=== PATIENT | female | born 1970 | race Caucasian/White ===

== ENCOUNTER 2019-04-22 15:45 | Emergency (ER) | payer OTHER ==
[~2019-04-22] VITALS: Ht 170.2 cm; Wt 102.1 kg
[~2019-04-22 15:45] MED LIST: ANTI-DIARRHEA2 MG PO; BIAXIN500 MG PO; CHERATUSSIN DA480 ML; LORTAB 10-3251 EACH; PREDNISONE 20 M20 MG PO; PROPRANOLOL 1010 MG; PROVENTIL IH; PROZAC 20 MG20 M1; PROZAC40 MG; TESSALON PERLE100 MG PO; VENTOLIN HFA 1818 GM INH; ZPAK PO
[2019-04-22] MEDS ORDERED: ALIGN4 MG PO (16:10)
[2019-04-22] MEDS ORDERED: FLEXERIL PO (16:10)
[2019-04-22] MEDS ORDERED: ACETAMINOPHEN-1 EAC1 PO (16:10)
[2019-04-22] MEDS ORDERED: XANAX 0.5 MG0.5 MG PO (16:10)
[2019-04-22 16:24] LABS: URINE BILIRUBIN NEGATIVE (Negative); URINE BLOOD 1+ (Negative); URINE CLARITY CLEAR; URINE COLOR YELLOW; URINE GLUCOSE-RANDOM NEGATIVE (Negative); URINE KETONES NEGATIVE (Negative); URINE LEUKOCYTES-REFLEX NEGATIVE (Negative); URINE NITRITE-REFLEX NEGATIVE (Negative); URINE PROTEIN NEGATIVE (Negative); URINE SPECIFIC GRAVITY <= 1.005 (1.005-1.030); URINE UROBILINOGEN 0.2 E.U./dl (0.2-1.0)
[2019-04-22 16:44] LABS: CRYSTALS None Seen /LPF (None Seen); MUCUS None Seen strn/LPF (None Seen); SQUAMOUS >10 Many /LPF (0-3)
[2019-04-22 16:45] LABS: BACTERIA-REFLEX >30 Many /HPF (None Seen); CASTS None Seen /LPF (None Seen); URINE RBC 0-2 Rare /HPF (0-2); URINE WBC-REFLEX 0-5 Rare /HPF (0-5)
[2019-04-22] MEDS ORDERED: MEDROL DOSPAK21 TA1 PO (18:04)
[2019-04-22 18:45] VITALS: BP 114/74
== END 2019-04-22 18:46 | disposition home or self-care (01) ==
LOC: M.ERS 15:45
PROVIDERS: Nurse Practitioner Family
DX: M54.42 Lumbago with sciatica, left side (principal); K58.9 Irritable bowel syndrome, unspecified; G43.909 Migraine, unspecified, not intractable, without status migrainosus; F31.9 Bipolar disorder, unspecified; Q07.00 Arnold-Chiari syndrome without spina bifida or hydrocephalus; F39 Unspecified mood [affective] disorder; F17.200 Nicotine dependence, unspecified, uncomplicated; Z88.1 Allergy status to other antibiotic agents

== ENCOUNTER 2019-04-29 17:35 | Emergency (ER) | payer OTHER ==
[~2019-04-29] VITALS: Ht 170.2 cm; Wt 102.1 kg
[~2019-04-29 17:35] MED LIST changes: +ACETAMINOPHEN-1 EAC1 PO; +ALIGN4 MG PO; +FLEXERIL PO; +MEDROL DOSPAK21 TA1 PO; +XANAX 0.5 MG0.5 MG PO
[2019-04-29] MEDS ORDERED: NORCO 5-325 TA1 EAC1 PO (19:06)
[2019-04-29 19:30] VITALS: BP 148/110
[2019-05-01] MEDS ORDERED: PROPRANOLOL 1010 MG PO (10:40)
== END 2019-04-29 19:31 | disposition home or self-care (01) ==
LOC: M.ERS 17:35
DX: M51.27 Other intervertebral disc displacement, lumbosacral region (principal); F39 Unspecified mood [affective] disorder; G43.909 Migraine, unspecified, not intractable, without status migrainosus; K58.9 Irritable bowel syndrome, unspecified; F32.9 Major depressive disorder, single episode, unspecified; Q07.00 Arnold-Chiari syndrome without spina bifida or hydrocephalus; Z88.1 Allergy status to other antibiotic agents

== ENCOUNTER → 2019-05-01 | Outpatient (CLI) | payer OTHER ==
[~2019-05-01] MED LIST changes: +NORCO 5-325 TA1 EAC1 PO; +PROPRANOLOL 1010 MG PO
== END | disposition home or self-care (01) ==
LOC: M.PC 05:21
DX: M51.16 Intervertebral disc disorders with radiculopathy, lumbar region (principal); F17.210 Nicotine dependence, cigarettes, uncomplicated; Z88.8 Allergy status to other drugs, medicaments and biological substances; Z79.899 Other long term (current) drug therapy

== ENCOUNTER → 2019-05-15 | Outpatient (CLI) | payer OTHER | LOC: M.PC 05:03 | DX: M47.16 Other spondylosis with myelopathy, lumbar region (principal); M51.17 Intervertebral disc disorders with radiculopathy, lumbosacral region ==

== ENCOUNTER → 2019-05-20 | Outpatient (CLI) | payer OTHER | END | disposition home or self-care (01) | LOC: M.PC 01:43 | DX: M51.16 Intervertebral disc disorders with radiculopathy, lumbar region (principal); F32.9 Major depressive disorder, single episode, unspecified; G43.909 Migraine, unspecified, not intractable, without status migrainosus; F17.210 Nicotine dependence, cigarettes, uncomplicated; Z88.8 Allergy status to other drugs, medicaments and biological substances; Z98.890 Other specified postprocedural states; Z79.899 Other long term (current) drug therapy ==

== ENCOUNTER → 2019-06-03 | Outpatient (CLI) | payer OTHER | END | disposition home or self-care (01) | LOC: M.PC 01:27 | DX: M51.16 Intervertebral disc disorders with radiculopathy, lumbar region (principal); M99.73 Connective tissue and disc stenosis of intervertebral foramina of lumbar region; M47.26 Other spondylosis with radiculopathy, lumbar region; Z88.8 Allergy status to other drugs, medicaments and biological substances; Z79.899 Other long term (current) drug therapy ==

== ENCOUNTER → 2019-06-17 | Outpatient (CLI) | payer OTHER | LOC: M.PC 01:39 | DX: M51.17 Intervertebral disc disorders with radiculopathy, lumbosacral region (principal); F17.200 Nicotine dependence, unspecified, uncomplicated ==

== ENCOUNTER 2019-09-01 10:28 | Emergency (ER) | payer OTHER ==
[~2019-09-01] VITALS: Ht 170.2 cm; Wt 113.4 kg
[2019-09-01] MEDS ORDERED: TYLENOL WITH CO1 TA1 PO (10:35)
[2019-09-01 11:06] LABS: INFLUENZA A ANTIGEN Negative (Negative); INFLUENZA B ANTIGEN Negative (Negative)
[2019-09-01] MEDS ORDERED: BUTALB-APAP-CA1 EACH PO (12:01)
[2019-09-01 12:10] VITALS: BP 126/80
== END 2019-09-01 12:11 | disposition home or self-care (01) ==
LOC: M.ERS 10:28
PROVIDERS: Nurse Practitioner Family
DX: G43.909 Migraine, unspecified, not intractable, without status migrainosus (principal); K58.9 Irritable bowel syndrome, unspecified; F17.210 Nicotine dependence, cigarettes, uncomplicated; Z88.1 Allergy status to other antibiotic agents